=== PATIENT | female | born 1995 | race Caucasian/White ===

== ENCOUNTER 2016-06-15 20:15 | Emergency (ER) | payer BC ==
[~2016-06-15] VITALS: Ht 162.6 cm; Wt 70.6 kg
[2016-06-15 20:21] VITALS: TEMP 36.6; Ht 162.6 cm; Wt 70.6 kg
[2016-06-15] MEDS ORDERED: SODIUM CHLORIDE 0.9% 1000ML 1,000 ML IV STA ×2 (20:58)
[2016-06-15] MEDS ORDERED: ONDANSETRON INJ 2 MG/ML 2 ML VIAL IV STA (20:58)
--- NOTE | 2016-06-15 21:06 | EMERGENCY ROOM VISIT NOTE ---
History Report prepared by Pamella: Roland Amado Under the Supervision of: Dr. Jaswinder Kaminski M.D. First contact with patient: 20:52 Chief Complaint: VOMITING Stated Complaint: VOMITING History of Present Illness The patient is a 20 year old female who presents to the Emergency Room with complaints of persistent vomiting beginning several hours prior to arrival. She currently rates her discomfort as a 9/10 in severity. The patient associates nausea, abdominal discomfort, headache, and a sore throat with today's symptoms. 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 The patient notes she had red juice with Red 40 dye last night, and she woke up this morning with vomiting, swollen lips , and slight redness to her face. She states she has had a similar reaction to Red 40 in the past, but the vomiting usually stopped after an hour or two. The patient notes her nausea worsens with drinking. The patient denies diarrhea, fever, chills, burning or blood with urination, rash, and chance of . 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 A total of 10 systems reviewed and were otherwise negative. 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 Nurse's notes were reviewed and I agree with. Family History Patient reports no known family medical history. Social History Smoking Status: Never Smoker Drug Use: none Marital Status: single, in relationship Occupation Status: [employer] Current/Historical Medications Scheduled Ondasetron Odt (Zofran Odt), 4 MG SL Q6H Physical Exam Vital Signs Date Time Temp Pulse Resp B/P Pulse Ox O2 Delivery O2 Flow Rate FiO2 06/15/16 20:21 36.6 90 18 127/90 98 Room Air Physical Exam General: Non ill-appearing. Young female. No acute distress. HEENT: Normal cephalic atraumatic. Pupils are equal round and reactive to light. There are anicteric. Extraocular movements are intact. Oropharynx is pink with moist mucous membranes. No swelling of the mouth lips or tongue. Neck: Supple with a midline trachea. No meningeal signs or stiffness, no JVD or bruits. No Stridor. Chest: Clear to auscultation bilaterally. No wheezes or rhonchi. No increased work of breathing. Heart: regular rate and rhythm. Abdomen: Soft nontender, nondistended without rebound guarding or rigidity. Extremities: No cyanosis clubbing or edema. No calf tenderness or assymetry Spine/Back. Non tender to palpation. No CVA tenderness Skin: Good turgor without rashes. Neurologic exam: Cranial nerves two through 12 are intact. Motor and sensation are intact and symmetrical throughout. Medical Decision & Procedures Laboratory Results 06/15/16 21:15 Red Blood Count 4.68, Mean Corpuscular Volume 86.5, Mean Corpuscular Hemoglobin 31.0, Mean Corpuscular Hemoglobin Concent 35.8, Mean Platelet Volume 9.6, Neutrophils (%) (Auto) 65.2, Lymphocytes (%) (Auto) 25.0, Monocytes (%) (Auto) 8.4, Eosinophils (%) (Auto) 1.1, Basophils (%) (Auto) 0.2, Neutrophils # (Auto) 5.40, Lymphocytes # (Auto) 2.07, Monocytes # (Auto) 0.70, Eosinophils # (Auto) 0.09, Basophils # (Auto) 0.02 06/15/16 21:15 Test 06/15/16 21:15 White Blood Count 8.29 K/uL (4.8-10.8) Red Blood Count 4.68 M/uL (4.2-5.4) Hemoglobin 14.5 g/dL (12.0-16.0) Hematocrit 40.5 % (37-47) Mean Corpuscular Volume 86.5 fL (80-100) Mean Corpuscular Hemoglobin 31.0 pg (25-34) Mean Corpuscular Hemoglobin Concent 35.8 g/dl (32-36) Platelet Count 326 K/uL (130-400) Mean Platelet Volume 9.6 fL (7.4-10.4) Neutrophils (%) (Auto) 65.2 % Lymphocytes (%) (Auto) 25.0 % Monocytes (%) (Auto) 8.4 % Eosinophils (%) (Auto) 1.1 % Basophils (%) (Auto) 0.2 % Neutrophils # (Auto) 5.40 K/uL (1.4-6.5) Lymphocytes # (Auto) 2.07 K/uL (1.2-3.4) Monocytes # (Auto) 0.70 K/uL (0.11-0.59) Eosinophils # (Auto) 0.09 K/uL (0-0.5) Basophils # (Auto) 0.02 K/uL (0-0.2) RDW Standard Deviation 37.4 fL (36.4-46.3) RDW Coefficient of Variation 11.8 % (11.5-14.5) Immature Granulocyte % (Auto) 0.1 % Immature Granulocyte # (Auto) 0.01 K/uL (0.00-0.02) Anion Gap 12.0 mmol/L (3-11) Est Creatinine Clear Calc Drug Dose 123.6 ml/min Estimated GFR () 144.6 Estimated GFR (Non- 124.7 BUN/Creatinine Ratio 15.6 (10-20) Calcium Level 8.9 mg/dl (8.5-10.1) Total Bilirubin 0.5 mg/dl (0.2-1) Direct Bilirubin 0.1 mg/dl (0-0.2) Aspartate Amino Transf (AST/SGOT) 26 U/L (15-37) Alanine Aminotransferase (ALT/SGPT) 42 U/L (12-78) Alkaline Phosphatase 84 U/L (45-117) Total Protein 8.0 gm/dl (6.4-8.2) Albumin 4.6 gm/dl (3.4-5.0) Lipase 145 U/L (73-393) Human Chorionic Gonadotropin, Qual NEG (NEG) Laboratory studies as stated above per my review. Medications Administered Medications (Trade) Dose Ordered Sig/Nidhi Route Start Time Stop Time Status Last Admin Dose Admin Sodium Chloride (Nss 1000ml) 1,000 ml @ 999 mls/hr Q1H1M STAT IV 06/15/16 20:58 06/15/16 21:58 DC 06/15/16 21:18 999 MLS/HR Ondansetron HCl 4 mg 4 mg NOW STAT IV 06/15/16 20:58 06/15/16 21:00 DC 06/15/16 21:23 4 MG Sodium Chloride (Nss 1000ml) 1,000 ml @ 999 mls/hr Q1H1M STAT IV 06/15/16 20:58 06/15/16 21:58 DC 06/15/16 21:19 999 MLS/HR ED Course 2053: Past medical records reviewed. The patient was evaluated in room B7, and a complete history and physical examination were performed. 2057: Ordered Sodium Chloride 1,000 ml @ 999 mls/hr IV, Zofran Inj 4 mg IV, Sodium Chloride 1,000 ml @ 999 mls/hr IV. 2124: Reevaluated the patient at this time, and she is feeling better and no longer vomiting. 2199: Ordered Ondansetron HCl 1 homepack PO. 2204: Upon reevaluation, the patient is doing well. I discussed the results and treatment plan with her. She verbalized agreement of the treatment plan. The patient was discharged home. Medical Decision Differentials include, but are not limited to; dehydration, infection, anaphylaxis, electrolyte or metabolic abnormalities. This patient comes in as described above. She was placed in room B7. She is here for treatment and evaluation of vomiting. She says she has sensitivity to red dye and she had some last evening. She's vomited multiple times. She looks well on my exam and her abdomen is benign. She's had no evidence suggest anaphylaxis. She's had no respiratory symptoms or any facial swelling. IV access was established and she was hydrated with 2 L IV normal saline while she was here she was given Zofran 4 mg IV. Blood work was obtained. She is not . She has no white count or fever to suggest infection. She's not significantly anemic. She has no acute electrolyte or metabolic maladies. She has no headache or anything to suggest an intracranial process. She is feeling better and would like to home. She should rest and drink plenty fluids. Use Zofran 4 mg under the tongue every 8 hours if needed and return to ER if: Worsening of symptoms, not tolerating fluids, fever or chills, any new problems concerns. She was happy with plan and discharged to home. Impression Primary Impression: Vomiting Scribe Attestation The scribe's documentation has been prepared under my direction and personally reviewed by me in its entirety. I confirm that the note above accurately reflects all work, treatment, procedures, and medical decision making performed by me. Departure Information Dispostion Home / Self-Care Prescriptions Ondasetron Odt (ZOFRAN ODT) 4 Mg Tab 4 MG SL Q6H for Nausea, #10 TAB Prov: Jaswinder Kaminski M.D. 06/15/16 Referrals No Doctor, Assigned (PCP) Forms HOME CARE DOCUMENTATION FORM, IMPORTANT VISIT INFORMATION Patient Instructions My [facility] Additional Instructions Rest. Drink plenty of fluids. Use Zofran 4 mg under the tongue every 6 hours as needed for nausea or vomiting Return to ER if: Worsening of symptoms, not tolerating fluids, fever or chills, abdominal pain, any new problems or concerns. Follow up with your doctor this week for recheck
[2016-06-15 21:27] LABS: BASO % 0.2 %; BASO ABS # 0.02 K/uL (0-0.2); COMPLETE YES; EOS % 1.1 %; HEMATOCRIT 40.5 % (37-47); IG% 0.1 %; LYMPH ABS # 2.07 K/uL (1.2-3.4); MEAN CELL VOLUME 86.5 fL (80-100); MEAN CORPUSCULAR HGB CONC 35.8 g/dl (32-36); MEAN PLATELET VOLUME 9.6 fL (7.4-10.4); MONO % 8.4 %; NEUT % 65.2 %; PLATELET COUNT 326 K/uL (130-400); RED BLOOD COUNT 4.68 M/uL (4.2-5.4); WHITE BLOOD COUNT 8.29 K/uL (4.8-10.8)
[2016-06-15 21:43] LABS: BUN/CREATININE RATIO 15.6 (10-20); CALCIUM 8.9 mg/dl (8.5-10.1); CREATININE 0.7 mg/dl (0.60-1.20); POTASSIUM 3.8 mmol/L (3.5-5.1)
[2016-06-15 21:54] LABS: PREG INTERNAL NEGATIVE QC NEG CLEAR BACKGROUND; PREG INTERNAL POSITIVE QC POS CONTROL LINE
[2016-06-15] MEDS ORDERED: ONDA4TAB10 SL (21:59)
[2016-06-15] MEDS ORDERED: ONDANSETRON HOME PACK 4MG OD TAB PO ONE (22:00)
[2016-06-15 22:45] VITALS: BP 131/89; PULSE 86; O2SAT 96
== END 2016-06-15 22:36 | disposition home or self-care (01) ==
LOC: C.EDB 20:16
DX: R11.10 Vomiting, unspecified (principal); Z91.018 Allergy to other foods